=== PATIENT | female | born 1985 | race Caucasian/White ===

== ENCOUNTER → 2016-12-14 | Emergency (ER) | payer MEDICAID ==
[~2016-12-14] VITALS: Ht 157.5 cm; Wt 50.0 kg
[~2016-12-14] MED LIST: ACET-62 PO; ACETAMINOPHEN 500 MG TABLET PO ONE; CYCL-375 PO; MELA3TAB30 PO; NORMAL SALINE 1,000 ML IV ONE; ONDA4TAB10 PO; ORPHENADRINE 60mg/2ml INJECTION IV ONE; PROC-14 PO; PROCHLORPERAZINE 10mg/2ml INJECTION IV ONE; SUCR1TAB PO
[2016-12-14 17:15] VITALS: TEMP 98; Ht 157.5 cm; Wt 50.0 kg
--- NOTE | 2016-12-14 17:47 | NUR ---
PROVIDER DR. HASSAN IN ROOM IN WITH PT.
--- NOTE | 2016-12-14 17:48 | ERPDOC ---
Departure Disposition Decision Date: Dec 14, 2016 Disposition Decision Time: 18:58 Disposition: 01 DISCHARGED HOME, SELF-CARE Impression Impression Impression: Primary Impression: Viral gastroenteritis Severity: Moderate Condition: Improved Seen By: Physician only Patient Instructions: Gastroenteritis (ED) Problems/Meds/Labs Reviewed?: Yes Medications reviewed and manag: Yes Additional Instructions: Compazine 10 mg, one tablet up to 4 times daily as needed for nausea or cramps May also use Tylenol 1000 mg 4 times daily for fever or pain Follow up care ordered?: Yes Mental Status: Alert Scripts Prochlorperazine Maleate (Compazine) 10 Mg Tablet 10 MG PO QID for n/v/cramps, #30 TAB 0 Refills Prov: NEIL HASSAN MD 12/14/16 HPI - Abdominal Pain General Chief Complaint: Abdominal Pain Stated Complaint: CHEST PAIN/ABD PAIN Time Seen by Provider: 17:42 Source: patient History/Exam Limitations: no limitations HPI - Abdominal Pain Initial Comments Pt presents via EMS with complaints of nausea and left sided abdominal pain for two days. Began with vomiting yesterday and then pain today. Pt had similar pain last month in where she lives, when she had pancreatitis. Had no cause known, normal ERCP but was found to have gastritis on EGD. Currently at [facility] for meth abuse, last use was two weeks ago when she overdosed and was hospitalized at [facility] [place]. Occurred At: home Onset: Rapid Quality: cramping, sharpness Location: LUQ, LLQ Radiation: chest Activities at Onset: none Associated Symptoms: nausea/vomiting, DENIES: back pain, chest pain, diaphoresis, fatigue, fever/chills, headache, heartburn, rash, shortness of breath, swelling/mass in abdomen, syncope, weakness Hx of Similar Symptoms: Yes Allergies: Coded Allergies: ketorolac (Verified Allergy, Unknown, 12/14/16) morphine (Verified Allergy, Unknown, 12/14/16) Past History Past Medical History GI: other (gastritis), pancreatitis Psychological: drug abuse Surgical History Denies Surgeries Family History Family History: Negative Social History Smoking Status: Never smoker Does patient use chewing tobac: No Second Hand Exposure: No Substance Use Type: former substance user, methamphetamine Alcohol Intake: none Service: Yes Record Review Pertinent history updated: Yes Review of Systems Constitutional Constitutional: DENIES: appetite decrease, appetite increase, chills, dizziness , fever, weakness ENMT Ears: DENIES: pain Hearing: DENIES: hearing loss, tinnitus Balance: DENIES: vertigo Mouth/Throat: DENIES: change in swallowing, change in voice, hoarsness, painful swallowing, sore throat Cardiovascular Cardiac: DENIES: chest pain, dyspnea on exertion Rhythm/Rate: DENIES: irregular beat, palpitations, tachycardia Vascular: DENIES: pedal edema Pulmonary Respiratory: DENIES: cough, dyspnea, pleuritic chest pain GI Upper Abdomen: nausea, pain, vomiting, DENIES: dysphagia, heartburn/indigestion Lower Abdomen: pain, DENIES: blood in stool, constipation, diarrhea Musculoskeletal General: DENIES: cramps, joint pain, joint swelling, pain, weakness Integumentary Skin: DENIES: rash, sores Neurological General: DENIES: headache, numbness, tingling, vertigo, weakness Psychiatric Psychiatric: DENIES: anxiety, depression, nervousness Physical Exam General General Nourishment: well nourished, well developed, appears stated age, no acute distress General Body Habitus: well groomed Vitals and Pain First Documented Vital Signs Date Time Temp Pulse Resp B/P Pulse Ox O2 Delivery O2 Flow Rate FiO2 12/14/16 17:15 98.0 77 14 110/64 100 Room Air Weight: Kilograms: 50.000 Height (feet): 5 Height (inches): 2.00 Triage Pain Scale: RN VS reviewed by Provider: Yes Comments Patient received EMS and was Zofran IV in route Normal Exams: Head: Normocephalic w/o trauma Eyes: Pupils are PERRLA w/ EOMI, No scleral icterus, irritation, or foreign bodies noted ENMT: No facial trauma, nasal exudates, pharyngeal erythema, or exudates are noted Neck: Full range of motion, without adenopathy, JVD, bruits or thyromegaly Chest/Resp: Clear all null, with good airflow, and symmetry bilaterally CV: Regular rate and rhythm, without murmur or gallop, Pulses 2+ all extremities, capillary refill, <2 seconds all ext., no pedal edema noted Lymphatic: No lymphadenopathy, or lymphedema noted Musculoskeletal: No tenderness, or deformity noted, good range of motion, all extremities Integumentary: No rashes, hives, or bruising noted, hair and nails, without abnormality Neurologic: Patient is alert, and oriented, cranial nerves, motor/sensory/ cerebellar, exams w/o gross deficits, to observation Psychiatric: Patient exhibits, appropriate attention, emotion and affect Abdomen (brief) Abdominal Brief: FOUND: bowel normo active x4, soft, tender (moderate diffuse left-sided tenderness, no guarding no rebounding), NOT FOUND: distended, hepatosplenomegaly Progress Results/Orders Orders Procedure Category Date Status Time Iv Lock (Ed Only) EDM 12/14/16 Transmitted 17:42 Cbc W/Auto LAB 12/14/16 Complete Diff-Reflex Manual Cmp - Comprehensive LAB 12/14/16 Complete Metabolic Lipase LAB 12/14/16 Complete Drug Screen LAB 12/14/16 Complete Urine-Test [place] [facility] [place] 17:42 Ethanol LAB 12/14/16 Complete Ua, Dip Wreflex LAB 12/14/16 Complete [employer] 17:42 LAB 12/14/16 Complete Qualitative, Urine 17:42 Prochlorperazine PHA 12/14/16 Complete (Compazine) 17:45 Acetaminophen PHA 12/14/16 Complete (Tylenol Extra 17:45 Normal Saline (Normal PHA 12/14/16 Complete Saline Iv) 17:45 Orphenadrine (Norflex) PHA 12/14/16 Complete 18:00 Lab Results Laboratory Tests Test 12/14/16 17:46 12/14/16 17:56 White Blood Count 6.4T/MM3 Red Blood Count 4.44M/MM3 Hemoglobin 14.2GM/DL Hematocrit 42.7% Mean Corpuscular Volume 96.2UM3 Mean Corpuscular Hemoglobin 32.0UUG Mean Corpuscular Hemoglobin Concent 33.3GM/DL RDW Standard Deviation 44.2FL Platelet Count 199T/MM3 Mean Platelet Volume 12.2UM3 Immature Granulocyte % (Auto) 0.3% Neutrophils (%) (Auto) 53.6% Lymphocytes (%) (Auto) 38.1% Monocytes (%) (Auto) 5.5% Eosinophils (%) (Auto) 1.9% Basophils (%) (Auto) 0.6% Absolute Immature Granulocyte (auto 0.02T/MM3 Absolute Neutrophils (auto) 3.4T/MM3 Absolute Lymphocytes (auto) 2.4T/MM3 Absolute Monocytes (auto) 0.4T/MM3 Absolute Eosinophils (auto) 0.1T/MM3 Absolute Basophils (auto) 0.0T/MM3 Turbidity < 20 Sodium Level 144MEQ/L Potassium Level 4.3MEQ/L Chloride Level 103MEQ/L Carbon Dioxide Level 31MEQ/L Anion Gap 10MEQ/L Blood Urea Nitrogen 11.0MG/DL Creatinine 0.7MG/DL Glomerular Filtration Rate Calc 98 BUN/Creatinine Ratio 16RATIO Glucose Level 89MG/DL Calculated Osmolality 275MOSM/KG Calcium Level 9.8MG/DL Total Bilirubin 0.50MG/DL Icterus Index < 2 Aspartate Amino Transf (AST/SGOT) 46U/L Alanine Aminotransferase (ALT/SGPT) 63U/L Alkaline Phosphatase 83U/L Total Protein 8.1G/DL Albumin 4.7G/DL Globulin 3.4G/DL Albumin/Globulin Ratio 1.4RATIO Lipase 209U/L Chemistry Specimen Hemolysis < 15 Alcohol, Quantitative <10MG/DL Urine Collection Type Cleancatch-midstream Urine Color Yellow Urine Turbidity Clear Urine pH 7.5 Urine Specific [place] 1.010 Urine Protein Negative Urine Glucose (UA) Negative Urine Ketones Negative Urine Blood Negative Urine Nitrite Negative Urine Bilirubin Negative Urine Urobilinogen 0.2EU/DL Urine Leukocyte Esterase Negative Urinalysis Comment Microscopic not ind. Urine Test Negative Urine Opiates Screen NegativeNG/ML Urine Oxycodone Screen NegativeNG/ML Urine Methadone Screen NegativeNG/ML Urine Propoxyphene Screen NegativeNG/ML Urine Barbiturates Screen NegativeNG/ML Urine Tricyclic Antidepressants NegativeNG/ML Urine Phencyclidine Screen NegativeNG/ML Urine Amphetamines Screen NegativeNG/ML Urine Methamphetamines Screen NegativeNG/ML Urine Benzodiazepines Screen PositiveNG/ML Urine Cocaine Screen NegativeNG/ML Urine Cannabinoids Screen NegativeNG/ML Urine Drug Screen Confirmation Pending Urine Drug Screen Information Pending Medications Current ED Medications Prochlorperazine Edisylate (Compazine) 10 mg O ONCE IV Last administered on 17:53; Start 12/14/16 at 17:45; Stop 12/14/16 at 17:46; Status DC Acetaminophen 1000 mg 1,000 mg O ONCE PO Last administered on 12/14/16 17:54 ; Start 12/14/16 at 17:45; Stop 12/14/16 at 17:46; Status DC Sodium Chloride (Normal Saline IV) 1,000 ml @ 0 mls/hr Q0M ONCE IV Last administered on 12/14/16 17:53; Start 12/14/16 at 17:45; Stop 12/14/16 at 17:46 ; Status DC Orphenadrine Citrate (Norflex) 60 mg O ONCE IV Last administered on 12/14/16 17:57; Start 12/14/16 at 18:00; Stop 12/14/16 at 18:01; Status DC Progress Progress Patient given Compazine 10 mg, Tylenol 1000 mg, for nausea and cramping and Norflex 60 mg IV for low back pain CBC - n CMP/L - n UA/P - n ADM - n Patient appears to have mild viral gastroenteritis, no evidence of ongoing pancreatitis, no evidence objectively of medication or drug withdrawal. Patient is given prescription for Compazine, with sample pack, one tablet 4 times daily as needed for cramps or nausea NEIL HASSAN MD Dec 14, 2016 17:48
[2016-12-14 18:09] LABS: BASOPHILS % (AUTO) 0.6 % (0-2); EOSINOPHILS # (AUTO) 0.1 T/MM3 (0-0.5); EOSINOPHILS % (AUTO) 1.9 % (0-4); HCT - HEMATOCRIT 42.7 % (36-46); HGB - HEMOGLOBIN 14.2 GM/DL (12-16); IMMATURE GRANULOCYTE # (AUTO) 0.02 T/MM3 (0.00-0.03); IMMATURE GRANULOCYTE % (AUTO) 0.3 % (0.0-0.5); LYMPHOCYTES # (AUTO) 2.4 T/MM3 (1-4.8); LYMPHOCYTES % (AUTO) 38.1 % (23-45); MEAN CORPUSCULAR HGB CONC(MCHC 33.3 GM/DL (31-37); MEAN CORPUSCULAR VOLUME 96.2 UM3 (80-100); MEAN PLATELET VOLUME 12.2 UM3 (9.4-12.4); MONOCYTES # (AUTO) 0.4 T/MM3 (0-0.8); MONOCYTES % (AUTO) 5.5 % (0-9.0); NEUTROPHILS #(AUTO)-ABSOLUTE 3.4 T/MM3 (1.8-7.7); NEUTROPHILS % (AUTO) 53.6 % (33-66); RED BLOOD COUNT 4.44 M/MM3 (4.00-5.20); WBC - WHITE BLOOD COUNT 6.4 T/MM3 (4.5-11.0)
--- NOTE | 2016-12-14 18:11 | NUR ---
REPORT TO REMY MARTINEZ
[2016-12-14 18:12] LABS: BLOOD, URINE NEGATIVE (NEGATIVE); COLOR,URINE YELLOW (YELLOW); LEUKOCYTE ESTERASE ,URINE NEGATIVE (NEGATIVE); NITRITE,URINE NEGATIVE (NEGATIVE); UROBILINOGEN,URINE 0.2 EU/DL (NORMAL)
[2016-12-14 18:20] LABS: ALBUMIN 4.7 G/DL (3.5-5.0); ALBUMIN/GLOBULIN RATIO 1.4 RATIO (1.1-2.2); ALKALINE PHOSPHATASE 83 U/L (38-126); ALT (SGPT) 63 U/L (9-52); ANION GAP 10 MEQ/L (5-15); AST (SGOT) 46 U/L (14-36); BUN/CREATININE RATIO 16 RATIO (6-26); CALCIUM 9.8 MG/DL (8.4-10.2); CHLORIDE 103 MEQ/L (98-107); CO2 - CARBON DIOXIDE 31 MEQ/L (22-30); CREATININE 0.7 MG/DL (0.7-1.2); ETHANOL <10 MG/DL (<10); GLOMERULAR FILTRATION RATE 98; GLUCOSE 89 MG/DL (65-110); POTASSIUM 4.3 MEQ/L (3.6-5); SODIUM 144 MEQ/L (134-144); TOTAL PROTEIN 8.1 G/DL (6.3-8.2)
[2016-12-14 18:29] LABS: LIPASE 209 U/L (23-300)
[2016-12-14 18:37] LABS: AMPHETAMINE SCREEN,URINE NEGATIVE; BARBITURATE SCREEN,URINE NEGATIVE; BENZODIAZEPINES SCREEN,URINE POSITIVE; CANNABINOID SCREEN,URINE NEGATIVE; COCAINE SCREEN,URINE NEGATIVE; METHADONE SCREEN, URINE NEGATIVE; METHAMPHETAMINE SCREEN, URINE NEGATIVE; OPIATE SCREEN,URINE NEGATIVE; PHENCYCLIDINE SCREEN,URINE NEGATIVE; TRICYCLIC ANTIDEPRESSANT,URINE NEGATIVE
--- NOTE | 2016-12-14 18:37 | NUR ---
STATUS PT REPORTS PAIN REDUCED TO 7/10.
[2016-12-14 19:22] VITALS: BP 109/56; PULSE 68; RESP 18; O2SAT 98
--- NOTE | 2016-12-14 19:22 | NUR ---
DISCHARGE PT GIVEN INSTRUCTIONS FOR CONT CARE GASTROENTERITIS W/ RX COMPAZINE. PT VERBALIZED UNDERSTANDING AND SIGNED FORM, [facility] CALLED FOR RIDE AND PT LEFT ER AMBULATORY TO WAITING ROOM, ALERT, VS CHARTED W/ PAIN RELIEVED TO 2/10 AND NO ACUTE DISTRESS.
== END | disposition home or self-care (01) ==
LOC: ED 17:15
DX: A08.4 Viral intestinal infection, unspecified (principal)
CPT/HCPCS: 80053; 80306; 80307; 81003; 81025; 83690; 85025; 96361; 96374; 96375; 99284; J0780; J2360; J7030